=== PATIENT | male | born 1995 | race Caucasian/White ===

== ENCOUNTER 2016-05-10 22:40 | Emergency (ER) | payer BC ==
[~2016-05-10] VITALS: Ht 188 cm; Wt 86.0 kg
[2016-05-10 22:41] VITALS: BP 151/101; PULSE 83; TEMP 37; O2SAT 97; Ht 188 cm; Wt 86.0 kg
[2016-05-10] MEDS ORDERED: OXYCODONE HCL IR 5 MG TAB (IMMEDIATE RELEASE) PO STA (22:54)
--- NOTE | 2016-05-10 23:06 | EMERGENCY ROOM VISIT NOTE ---
History Report prepared by Fan: Concepcion Javier Under the Supervision of: Dr. Aubrey Coburn D.O. First contact with patient: 22:45 Chief Complaint: ARM PAIN Stated Complaint: HURT ARM SKIING History of Present Illness The patient is a 20 year old male who presents to the Emergency Room with complaints of left upper extremity injury. The patient has a history of previous dislocation in the past. The patient fell with an outstretched left upper extremity while skiing. He has significant pain and decreased range of motion. The patient denies any other injuries. He denies having any loss of consciousness or neck pain. Pain is severe with any movement. Pain is minimally improved with holding the arm still. The patient is a history of severe dislocation in the past. The patient came to the emergency department with friends. Source of History: patient Onset: L[employer]OGRAPHIC PH[employer]GRAP[employer] Position: shoulder (left) Symptom Intensity: severe Timing: constant Modifying Factors (Worsening): movement Modifying Factors (Relieving): other (holding arm still) Associated Symptoms: No LOC Review of Systems See HPI for pertinent positives & negatives. A total of 10 systems reviewed and were otherwise negative. Past Medical & Surgical Medical Problems: (1) No significant past medical history Family History No pertinent history stated. Social History Smoking Status: Never Smoker Marital Status: single Housing Status: lives with roommate Occupation Status: [employer] student Current/Historical Medications No Active Prescriptions or Reported Meds Allergies Coded Allergies: Morphine (Verified Allergy, Mild, Hives, 05/10/16) Physical Exam Vital Signs Date Time Temp Pulse Resp B/P Pulse Ox O2 Delivery O2 Flow Rate FiO2 05/10/16 22:41 37.0 83 20 151/101 97 Room Air Physical Exam GENERAL: Patient is awake and alert. He is very anxious and uncomfortable. EYES: The conjunctivae are clear. The pupils are round and reactive. EARS, NOSE, MOUTH AND THROAT: The nose is without any evidence of any deformity. Mucous membranes are moist tongue is midline NECK: The neck is nontender and supple. RESPIRATORY: Normal respiratory effort is noted there is no evidence of wheezing rhonchi or rales CARDIOVASCULAR: Regular rate and rhythm noted there no murmurs rubs or gallops normal S1 normal S2 GASTROINTESTINAL: The abdomen is soft. Bowel sounds are present in all quadrants. Abdomen is nontender BACK: No midline tenderness or or step-off noted range of motion in flexion extension as well as rotation no signs of muscle spasm noted MUSCULOSKELETAL/EXTREMITIES: Left upper extremity is significantly painful with any range of motion. There is a deltoid step-off as well as anterior fullness noted. SKIN: There is no obvious evidence of any rash. There are no petechiae, pallor or cyanosis noted. NEUROLOGIC: Patient is awake alert and oriented x3. There is no numbness over the deltoid. Medical Decision & Procedures ER Provider Diagnostic Interpretation: Left shoulder x-ray as interpreted by myself reveals no bony abnormality, no dislocation, no soft tissue swelling noted, no acute disease. Medications Administered Medications (Trade) Dose Ordered Sig/Sarai Route Start Time Stop Time Status Last Admin Dose Admin Oxycodone HCl (Roxicodone Immediate Rel Tab) 5 mg NOW STAT PO 05/10/16 22:54 05/10/16 22:55 DC 05/10/16 23:00 5 MG Oxycodone HCl (Roxicodone Immediate Rel 5MG Home Pack) 1 homepack UD ONCE PO 05/10/16 23:15 05/10/16 23:16 DC 05/10/16 23:15 1 HOMEPACK Procedure Anterior Shoulder Dislocation Reduction Indication: Clinical anterior left shoulder dislocation Verbal consent obtained. Risks and benefits were explained with the usual customary discussion. A time out was taken. Neurovascular examination before the procedure revealed no numbness over the deltoid, NVI distally. The left shoulder glenohumeral dislocation was reduced by placing the patient prone and applying gentle downward inline traction on the humerus, with the elbow flexed at 90 degrees, while scapula manipulation was applied. This resulted in an easy reduction without complication. Neurovascular examination after the procedure revealed unchanged. The patient had significant pain relief and tolerated the procedure well. ED Course 5: The patient was evaluated in room B9. A complete history and physical examination were performed. At this time I performed an anterior shoulder dislocation reduction. Please see the procedure note for further details. 2254: Oxycodone HCl 5 mg PO 2315: Oxycodone HCl 5 mg PO homepack. 2326: I reassessed the patient at this time. He is feeling better and resting comfortably. I discussed the results and treatment plan with the patient. I answered all pertaining questions that he had. He expressed understanding and verbalized agreement. The patient will be discharged home. Medical Decision Prior records reviewed and summarized above. Triage Nursing notes reviewed and agree them. The patient's history was concerning for traumatic injury. Differential diagnosis: Etiologies such as fracture, dislocation, neurovascular compromise, compartment syndrome, soft tissue injury, as well as others were entertained. The patient is a 20-year-old male who presented to the emergency department after a fall while skiing. The patient fell on outstretched left upper extremity. His physical exam appear to be consistent with a shoulder dislocation. The patient is had a shoulder dislocation the past and felt that this was similar. His shoulder was reduced in the usual fashion with the patient in the prone position. He was reevaluated and felt much better. X-rays revealed good reduction and no bony abnormality. The patient was given follow- up information with the on-call orthopedic physician in a sling. He was encouraged to rest and avoid any strenuous activity. He was also encouraged to return to the emergency department immediately if symptoms change worsen or the need arises. Impression Primary Impression: Anterior dislocation of left shoulder Scribe Attestation The scribe's documentation has been prepared under my direction and personally reviewed by me in its entirety. I confirm that the note above accurately reflects all work, treatment, procedures, and medical decision making performed by me. Departure Information Dispostion Home / Self-Care Prescriptions No Active Prescriptions or Reported Meds Referrals No Doctor, Assigned (PCP) Yasmany Mcdonald M.D. Forms HOME CARE DOCUMENTATION FORM, IMPORTANT VISIT INFORMATION, School Instructions, Work Instructions Patient Instructions ED Dislocation Shoulder Redu, My [facility] Additional Instructions Continue to use the sling especially when you're ambulating. Rest and avoid any strenuous activity. Continue using Motrin and Tylenol as directed for pain. Follow-up with the orthopedic physician as soon as possible. Problem Qualifiers Primary Impression: Anterior dislocation of left shoulder Encounter type: initial encounter Qualified Codes: S43.015A - Anterior dislocation of left humerus, initial encounter
[2016-05-10] MEDS ORDERED: OXYCODONE IR HOME PACK PO ONE (23:15)
--- NOTE | 2016-05-11 06:55 | DIAGNOSTIC IMAGING REPORT ---
LEFT SHOULDER MIN 2 VIEWS ROUTINE CLINICAL HISTORY: LUE injury trauma. Pain. COMPARISON: None. DISCUSSION: The bones and joint spaces appear intact. There is no evidence of fracture, dislocation or bony disease. There is no evidence for soft tissue swelling. IMPRESSION: Negative study. Electronically signed by: Mike Ramirez M.D. 05/11/2016 6:54 AM Dictated Date/Time: 05/11/2016 6:53 AM
== END 2016-05-10 23:30 | disposition home or self-care (01) ==
LOC: C.EDB 22:41
DX: S43.015A Anterior dislocation of left humerus, initial encounter (principal); W19.XXXA Unspecified fall, initial encounter; Y92.89 Other specified places as the place of occurrence of the external cause; Y93.23 Activity, snow (alpine) (downhill) skiing, snowboarding, sledding, tobogganing and snow tubing

== ENCOUNTER 2016-12-10 18:31 | Emergency (ER) | payer BC ==
[~2016-12-10] VITALS: Ht 188 cm; Wt 81.8 kg
[2016-12-10 18:38] VITALS: TEMP 36.8; Ht 188 cm; Wt 81.8 kg
[2016-12-10] MEDS ORDERED: ACETAMINOPHEN 500 MG TAB PO STA (18:50)
[2016-12-10] MEDS ORDERED: IBUPROFEN 800 MG TAB PO STA (18:50)
--- NOTE | 2016-12-10 19:02 | EMERGENCY ROOM VISIT NOTE ---
History Report prepared by Jeaneibcatracho: Miroslava Tijerina Under the Supervision of: Dr. Hebr Norton M.D. First contact with patient: 18:43 Chief Complaint: SHOULDER DISLOCATION Stated Complaint: RT SHOULDER DISLOCATED History of Present Illness The patient is a 21 year old male who presents to the Emergency Room with complaints of a left shoulder dislocation that occurred less than 1 hour [employer]. He reports he was working out on a climbing wall this evening, when as he was reaching his left arm backwards, his shoulder dislocated. He rates his current pain as a 6/10 in severity. Movement worsens his pain and he has taken no medication for his discomfort yet. He admits the fingers in his left hand feel minimally "numb and tingly" currently. This is the fourth time he has dislocated this shoulder. In the past, the patient has followed with [facility] locally. He states he has no chronic medical problems. Source of History: patient Onset: 1 hour [employer] Position: shoulder (left) Symptom Intensity: 6/10 Modifying Factors (Worsening): movement Associated Symptoms: + numbness (left hand) Review of Systems See HPI for pertinent positives & negatives. A total of 10 systems reviewed and were otherwise negative. Past Medical & Surgical Medical Problems: (1) No significant past medical history Social History Smoking Status: Never Smoker Alcohol Use: occasionally Drug Use: none Marital Status: single Housing Status: lives with roommate Occupation Status: [employer] Current/Historical Medications No Active Prescriptions or Reported Meds Allergies Coded Allergies: Morphine (Verified Allergy, Mild, Hives, 05/10/16) Codeine (Verified Allergy, Unknown, hives, 12/10/16) Physical Exam Vital Signs Date Time Temp Pulse Resp B/P (MAP) Pulse Ox O2 Delivery O2 Flow Rate FiO2 12/10/16 18:38 36.8 68 20 121/72 97 Room Air Physical Exam GENERAL: Patient is in mild distress from pain. HEENT: No acute trauma, normocephalic atraumatic, mucous membranes moist, no nasal congestion, no scleral icterus. NECK: No stridor, no adenopathy, no meningismus, trachea is midline. LUNGS: Clear to auscultation bilaterally, no wheeze, no rhonchi, breath sounds equal. HEART: Without murmurs gallops or rubs, regular rate and rhythm. ABDOMEN: Soft, nontender, bowel sounds positive, no hernias, no peritonitis. EXTREMITIES: Left shoulder is clinically dislocated in the anterior direction, pain with movement of the left shoulder in any direction. NVI distally in the left upper extremity. Left clavicle is stable and nontender. NEUROLOGIC: Oriented x 3, no acute motor or sensory deficits, no focal weakness. SKIN: No rash, no jaundice, no diaphoresis. Medical Decision & Procedures ER Provider Diagnostic Interpretation: Radiology results as stated below per my review and radiologist interpretation: LEFT SHOULDER MIN 2 VIEWS ROUTINE CLINICAL HISTORY: s/p dislocation COMPARISON: None. DISCUSSION: The bones and joint spaces appear intact. There is no evidence of fracture, dislocation or bony disease. There is no evidence for soft tissue swelling. IMPRESSION: Negative study. The above report was generated using voice recognition software. It may contain grammatical, syntax or spelling errors. Electronically signed by: Mike Ramirez M.D. 12/10/2016 7:16 PM Medications Administered Medications (Trade) Dose Ordered Sig/Sarai Route Start Time Stop Time Status Last Admin Dose Admin Ibuprofen (Motrin Tab) 800 mg NOW STAT PO 12/10/16 18:50 12/10/16 18:54 DC 12/10/16 19:18 800 MG Acetaminophen (Tylenol Tab) 1,000 mg NOW STAT PO 12/10/16 18:50 12/10/16 18:54 DC 12/10/16 19:19 1,000 MG Procedure Shoulder dislocation: The patient was placed supine on the stretcher. His left arm was allowed to hang over the edge of the bed. Using massage, scapular manipulation and some humeral traction, the shoulder was relocated without difficulty. No complications with the procedure. Post reduction films show the shoulder to be in proper position, no fracture. The patient was placed in a sling. ED Course 1843: The patient was evaluated in room C8 . A complete history and physical exam was performed. 1849: Acetaminophen 1000 mg PO, Ibuprofen 800 mg PO. 1939: I reevaluated the patient. He is feeling well and ready to go home. I discussed his results and discharge instructions and he verbalized complete understanding and agreement. Medical Decision The differential diagnoses considered include clavicle or shoulder fracture, shoulder dislocation and neurovascular compromise. The patient presents with an obvious left anterior shoulder dislocation. Using humeral traction and scapular manipulation, the shoulder was reduced without difficulty. The patient is neurovascularly intact distally in the left upper extremity. There was no trauma to any other area of the body. Since the shoulder has been reduced, the patient feels markedly better. He was placed in a left shoulder sling. The patient was given ice pack, oral Motrin and oral Tylenol. He will be discharged to follow with orthopedics. Medication Reconcilliation Current Medication List: was personally reviewed by me Blood Pressure Screening Patient's blood pressure: Normal blood pressure Blood pressure disposition: Did not require urgent referral Impression Primary Impression: Anterior dislocation of left shoulder Scribe Attestation The scribe's documentation has been prepared under my direction and personally reviewed by me in its entirety. I confirm that the note above accurately reflects all work, treatment, procedures, and medical decision making performed by me. Departure Information Dispostion Home / Self-Care Prescriptions No Active Prescriptions or Reported Meds Referrals No Doctor, Assigned (PCP) Patient Instructions My [facility] Additional Instructions wear the slip for comfort motrin 600 mg every 6 hours for next 4 days ice to help the swelling several times a day for 30 minutes at a time call and set up orthopedic appt--call in the am return if worsening
--- NOTE | 2016-12-10 19:17 | DIAGNOSTIC IMAGING REPORT ---
LEFT SHOULDER MIN 2 VIEWS ROUTINE CLINICAL HISTORY: s/p dislocation COMPARISON: None. DISCUSSION: The bones and joint spaces appear intact. There is no evidence of fracture, dislocation or bony disease. There is no evidence for soft tissue swelling. IMPRESSION: Negative study. The above report was generated using voice recognition software. It may contain grammatical, syntax or spelling errors. Electronically signed by: Mike Ramirez M.D. 12/10/2016 7:16 PM Dictated Date/Time: 12/10/2016 7:15 PM
[2016-12-10 19:49] VITALS: BP 126/62; PULSE 57; O2SAT 97
[2016-12-10] MEDS ORDERED: AMPH10TA2 PO (20:03)
== END 2016-12-10 19:50 | disposition home or self-care (01) ==
LOC: C.EDB 18:32 → C.EDC 19:50
DX: M24.412 Recurrent dislocation, left shoulder (principal); X50.0XXA Overexertion from strenuous movement or load, initial encounter; Y93.31 Activity, mountain climbing, rock climbing and wall climbing